=== PATIENT | female | born 2005 | race Caucasian/White ===

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

== ENCOUNTER → 2025-02-05 09:19 | Outpatient (REF) | payer OTHER, SELFPAY ==
[2025-02-05 22:20] LABS: Hepatitis B Surface Antibody Negative
[2025-02-07 13:01] LABS: Quantiferon TB Gold Plus Negative (Negative)
== END ==
LOC: REG 09:19
PROVIDERS: ATTENDING PHYSICIAN Nurse Practitioner Family
DX: Z23 Encounter for immunization (principal)
CPT/HCPCS: 86480; 86706

== ENCOUNTER → 2025-04-03 10:51 | Outpatient (REF) | payer OTHER, SELFPAY | LOC: OHS 10:51 | PROVIDERS: ATTENDING PHYSICIAN Nurse Practitioner Family | DX: Z23 Encounter for immunization (principal) | CPT/HCPCS: 36415; 86706 ==